=== PATIENT | female | born 1960 | race Caucasian/White ===

== ENCOUNTER 2022-11-26 09:15 | Day surgery (SDC) | payer OTHER, SELFPAY ==
--- NOTE | ~2022-11-26 | FL_ITS ---
EXAMINATION: XR LUMBAR PUNCTURE CLINICAL INFORMATION: Mild cognitive impairment. COMPARISON: None TECHNIQUE: Following explaining fluoroscopy-guided lumbar puncture procedure, benefits and risks, a written consent was obtained. Under fluoroscopy an optimal site was selected along the L4-L5 disc level and marked on the skin. The marked site was cleaned and draped in usual sterile manner. 1% lidocaine was injected at puncture site. Under fluoroscopy a 20-gauge spinal needle was advanced from the skin intrathecally at L4-L5 disc level. The stylet was removed and CSF was collected in 4 test tubes. Postprocedure stylet was reintroduced and the entire needle was removed. Complete hemostasis was achieved at puncture site. Sterile dressing applied postprocedure. Patient tolerated the procedure extremely well. FINDINGS: On single AP image of lumbar spine, the vertebral heights, alignment and disc heights are normal. There is minimal ventral spondylosis at the L3-L4 and L4-L5 disc levels. Approximately 10.5 mL of clear CSF fluid was collected in 4 test tubes and sent to lab as per referring physician's orders. FLUOROSCOPY TIME: 0.7 minutes. DOSE AREA PRODUCT: 8.012 uGy-m2 (microgray-meter squared) FL/FL guided lumbar puncture LP IMPRESSION: Successful fluoroscopy-guided lumbar puncture performed without immediate complications.
[2022-11-26 09:29] VITALS: BMI 39.1
[2022-11-26 09:53] LABS: MANUAL DIFF FLAG NO
[2022-11-26 10:01] LABS: Basophils Percent Auto 0.3 % (0-2); Eosinophils Absolute Auto 0.4 X10*3/uL (0.0-0.4); Eosinophils Percent Auto 6.2 % (0-4); Hematocrit 40.9 % (37.0-47.0); Lymphocytes Absolute Auto 1.7 X10*3/uL (1.2-4.9); Lymphocytes Percent Auto 29.7 % (20-40); Mean Corpuscular HGB Conc 34.2 g/dl (31.0-35.0); Mean Corpuscular Hemoglobin 29.7 pg (27.0-33.0); Mean Corpuscular Volume 86.8 fL (80.0-98.0); Mean Platelet Volume 10.2 fL (9.4-12.3); Monocytes Absolute Auto 0.4 X10*3/uL (0.1-1.2); Monocytes Percent Auto 6.2 % (2-11); Neutrophils Absolute Auto 3.3 x10*3/uL (2.0-8.3); Neutrophils Percent Auto 57.6 % (45-73); Platelet Count 234 X10*3/uL (160-400); Red Blood Count 4.71 X10*6/uL (4.20-5.50); Red Cell Distribution Width 12.5 % (11.0-16.0); White Blood Count 5.8 X10*3/uL (4.8-10.8)
[2022-11-26 10:07] LABS: INTERNATIONAL NORM RATIO 0.9 (0.9-1.1); Prothrombin Time 10.6 SEC (10.0-13.1)
[2022-11-26 10:09] LABS: Partial Thromboplastin Time 31.8 SEC (26.0-36.4)
[2022-11-26 10:13] LABS: Anion Gap 16 (12-20); Blood Urea Nitrogen 19 mg/dL (9-16); Carbon Dioxide 24 mmol/L (22-29); Chloride 106 mmol/L (96-108); Potassium 3.6 mmol/L (3.3-5.1); Sodium 142 mmol/L (135-145)
[2022-11-26 12:09] VITALS: BP 141/66; PULSE 63; RESP 16; TEMP 36.4; O2SAT 96
[2022-11-26 12:39] VITALS: BP 133/66; PULSE 64; RESP 18; O2SAT 97
[2022-11-26 12:57] LABS: CSF Appearance Clear, Colorless
[2022-11-26 12:58] LABS: CSF Tube # 1
[2022-11-26 13:08] LABS: Glucose CSF 78 mg/dL; Total Protein CSF 51.5 mg/dL (15-45)
[2022-11-26 13:09] VITALS: BP 128/48; PULSE 66; RESP 18; O2SAT 98
[2022-11-26 13:35] VITALS: BP 143/66; PULSE 68; RESP 18; O2SAT 98
[2022-11-26 13:53] LABS: Appearance CSF CLEAR; CSF Monos 20 %; CSF Tube # 4; Color CSF COLORLESS; Lymphocytes CSF 80 %; Red Blood Cell CSF 0 MM*3; White Blood Cell CSF 2 MM*3
[2022-11-26 14:05] VITALS: BP 142/73; PULSE 69; RESP 18; O2SAT 98
[2022-11-26 14:51] VITALS: BP 133/68; PULSE 72; RESP 18; O2SAT 95
== END 2022-11-26 14:56 | disposition home or self-care (01) ==
PROVIDERS: Radiology Diagnostic Radiology; PCP Internal Medicine; Visit Provider Psychiatry & Neurology Neurology
PROC: 009U3ZZ Drainage of Spinal Canal, Percutaneous Approach (ICD-10-PCS; CPT 62270; principal; 2022-11-26 11:00)
DX: G31.84 Mild cognitive impairment of uncertain or unknown etiology (principal); F90.9 Attention-deficit hyperactivity disorder, unspecified type; I10 Essential (primary) hypertension; G47.33 Obstructive sleep apnea (adult) (pediatric); F41.8 Other specified anxiety disorders; E03.9 Hypothyroidism, unspecified; E11.9 Type 2 diabetes mellitus without complications; Z79.84 Long term (current) use of oral hypoglycemic drugs; Z99.89 Dependence on other enabling machines and devices
CPT/HCPCS: 36415; 62328; 80051; 82945; 83520; 84157; 84520; 85025; 85610; 85730; 89051

== ENCOUNTER → 2025-05-10 07:29 | Outpatient (BNV) | payer OTHER, SELFPAY | PROVIDERS: PCP Internal Medicine; Visit Provider Radiology Diagnostic Radiology | DX: R90.0 Intracranial space-occupying lesion found on diagnostic imaging of central nervous system (principal) | CPT/HCPCS: 70551 ==

== ENCOUNTER 2025-05-10 07:30 | Outpatient (REF) | payer OTHER, SELFPAY ==
--- NOTE | ~2025-05-10 | MR_ITS ---
EXAMINATION: MR BRAIN WITHOUT CONTRAST CLINICAL INFORMATION: Headache. Mild cognitive impairment of uncertain etiology. COMPARISON: None available. TECHNIQUE: MRI of the brain was obtained using routine sequences without contrast. FINDINGS: No restricted diffusion. No acute intracranial hemorrhage, mass effect, midline shift, hydrocephalus or herniation. Bilateral, multifocal patchy and punctate subcortical and deep white matter hyperintense T2 FLAIR signal involving centrum semiovale and larose radiata. Questionable 4 mm subependymal irregular morphology of the left lateral ventricle. There is CSF prominence of the temporal horn right lateral ventricle with the probable volume loss of the right hippocampus. No gross signal abnormality in the proper hippocampus. Sellar/suprasellar region demonstrated no gross signal abnormality or masses. Craniocervical junction demonstrates normal position of the cerebellar tonsils. No signal abnormality within the posterior cranial fossa contents. Flow-void signal within the main vessels is normal. MR/MR head/brain wo con IMPRESSION: Right mesial temporal sclerosis should be considered in the correct clinical settings. Consider a dedicated image contrast high-resolution with IV contrast. White matter disease. Consider small vessel occlusive disease versus demyelinating process. Questionable subependymal irregularity left lateral ventricle. Electronically signed by: Enio Laguna MD 05/10/2025 08:34 AM EDT
--- OUTSIDE RECORDS SUMMARY | 2025-05-10 07:33 | XMS_ITS | Clinical Summary ---
Author Organization [address] Address [address] [place] [phone] Phone Care Team Providers Care Associate Dean Of Women Name Role Phone Didier Tinoco MD Primary Care Provider Allergies No known active allergies Medications methylphenidate (METADATE ER) 20 mg ER tablet Take 1 tablet (20 mg total) by mouth 1 (one) time each day before breakfast. 03/20/2025 Active metFORMIN (GLUCOPHAGE) 500 mg tablet Take 1 tablet (500 mg total) by mouth 1 (one) time each day with breakfast. Active donepeziL (ARICEPT) 5 mg tablet Take 1 tablet (5 mg total) by mouth at bedtime. Active chlorthalidone (HYGROTON) 25 mg tablet Take 1 tablet (25 mg total) by mouth 1 (one) time each day. 02/20/2025 Active atorvastatin (LIPITOR) 10 mg tablet Take 1 tablet (10 mg total) by mouth at bedtime. Active levothyroxine (SYNTHROID, LEVOTHROID) 125 mcg tablet Take 1 tablet (125 mcg total) by mouth 1 (one) time each day before breakfast. Active semaglutide (Ozempic) 0.25 mg or 0.5 mg(2 mg/1.5 mL) injection pen Inject 0.25 mg under the skin every 7 (seven) days. Active Active Problems Problem Noted Date Diagnosed Date Diabetes (CMS/HCC V24, CMS/HCC V28) 03/22/2025 Hypercholesteremia 03/22/2025 Obesity 03/22/2025 Post concussion syndrome 03/22/2025 ADD (attention deficit disorder) 10/15/2018 Hypertension 10/15/2018 Hypothyroid 10/15/2018 HAYDEN (obstructive sleep apnea) 10/15/2018 Encounters Date Type Department Care Team Description 04/07/2025 Telephone [facility] [address] [phone] Stacy Anders MA 04/03/2025 Telephone [facility] [address] [phone] Janeth Antonio MA Follow Up Appt 03/28/2025 Telephone [facility] [address] [address] Mike Sadler MD 03/22/2025 2:00 PM EDT Office Visit [address] [phone] Mike Sadler MD HAYDEN (obstructive sleep apnea) (Primary Dx); New daily persistent headache 03/22/2025 Telephone [facility] [address] [address] Janeth Antonio MA Abstraction (/) from Last 3 Months Surgical History Surgery Date Site/Laterality Comments OTHER SURGICAL HISTORY 2009 Right PROCEDURE: MS OPEN REPAIR OF ROTATOR CUFF ACUTE Medical History Medical History Date Comments HTN (hypertension) 2012 DX:HTN (hyper tension) ADD (attention deficit disorder) DX:ADD (attention deficit disorder) Hypothyroid DX:Hypothyroid Family History Medical History Relation Name Comments Diabetes Father Heart attack Maternal Grandfather Heart attack Maternal Grandmother Alzheimer's disease Mother Diabetes Paternal Grandfather No Known Problems Paternal Grandmother Relation Name Status Comments Father Maternal Grandfather Maternal Grandmother Mother Paternal Grandfather Paternal Grandmother Social History Tobacco Use Types Packs/Day Years Used Date Smoking Tobacco: Never Smokeless Tobacco: Never Tobacco Cessation:Counseling Given: Not Answered Alcohol Use Standard Drinks/Week Comments Yes 0 (1 standard drink = 0.6 oz pur e alcohol) Comments Unknown Sex and Gender Information Value Date Recorded Sex Assigned at Not on file Legal Sex Female 8:37 PM EST Gender Identity Not on file Sexual Orientation Not on file Obstetrics History Last Filed Vital Signs Vital Sign Reading Time Taken Comments Blood Pressure 168/89 03/22/2025 2:18 PM EDT Pulse 87 03/22/2025 2:18 PM EDT Temperature 36.4 C (97.5 F) 03/22/2025 2:18 PM EDT Respiratory Rate 20 03/22/2025 2:18 PM EDT Oxygen Saturation 99% 03/22/2025 2:18 PM EDT Inhaled Oxygen Concentration - - Weight 91.2 kg (201 lb) 03/22/2025 2:18 PM EDT Height 165.1 cm (5' 5 ) 03/22/2025 2:18 PM EDT Body Mass Index 33.45 03/22/2025 2:18 PM EDT Plan of Treatment Upcoming Encounters Date Type Department Care Team (Late st Contact Info) Description 05/24/2025 8:15 AM EDT Office Visit Pulmonolgy - [address] [phone] Mike Sadler MD [address] [address] Health Maintenance Due Date Last Done Comments Breast Cancer Screening 1960 Diabetes: Annual Foot Exam 12/27/1971 Diabetes: Annual Retina Eye Exam 12/27/1971 DTaP,Tdap,and Td Vaccines (1 - Tdap) 1980 Pneumococcal Vaccine: 50+ Years (1 of 2 - PCV) 1980 Cervical Cancer Screening: P ap Smear 1982 Zoster Vaccines (1 of 2) 12/27/2011 Cholesterol Screening (Lipid Panel) 09/20/2022 Colorectal Cancer Screening: Colonoscopy 09/20/2022 HIV Screening 09/20/2022 Hepatitis C Screening 09/20/2022 Social Influencers of Health Screening 09/20/2022 COVID-19 Vaccine (3 - 2023-2 5 season) 2024 07/25/2021, 07/04/2021 Depression Screening 10/19/2024 Diabetes: Annual Urine Albumin-Creatinine Ratio (uACR) 12/29/2024 Influenza Vaccine (#1) 2025 Diabetes: Blood Sugar Contro l Test (HGBA1C) 07/01/2025 12/29/2024 Diabetes: Annual GFR (Glomerular Filtration Rate) 12/29/2025 12/29/2024 Hypertension/CHF/CAD Annual BMP Blood Test 12/29/2025 12/29/2024 RSV Immunization Adult Patients (1 - 1-dose 75+ series) 2036 HIB Vaccines Aged Out No longer eligi ble based on patient's age to complete this topic HPV Vaccines Aged Out No longer eligi ble based on patient's age to complete this topic Hepatitis A Vaccines Aged Out No long er eligible based on patient's age to complete this topic Hepatitis B Vaccines Aged Out No long er eligible based on patient's age to complete this topic IPV Vaccines Aged Out No longer eligi ble based on patient's age to complete this topic MMR Vaccines Aged Out No longer eligi ble based on patient's age to complete this topic Meningococcal ACWY Vaccine Aged Out N o longer eligible based on patient's age to complete this topic Meningococcal B Vaccine Aged Out No l onger eligible based on patient's age to complete this topic RSV Immunization Patients Under 20 months Aged Out No longer eligible b ased on patient's age to complete this topic Varicella Vaccines Aged Out No longer eligible based on patient's age to complete this topic Procedures Procedure Name Priority Date/Time Associated Diagnosis Comments COMPREHENSIVE METABOLIC PANEL Routine 12/29/2024 2:02 PM EDT Routine general medical examination at a health care facility Essential hypertension, benign HEMOGLOBIN A1C Routine 12/29/2024 2:02 PM EDT Routine general medical examination at a health care facility Essential hypertension, benign from Last 3 Months or Most Recently Relevant to Health Maintenance Results * Hemoglobin A1c (12/29/2024 2:02 PM EDT) Hemoglobin A1C 5.5 <6.5 % LAB CHEMISTRY METHOD 12/29/2024 8:47 PM EDT [facility] Mean Bld Glu Estim. 111 mg/dL LAB CHEMISTRY METHOD 12/29/2024 8:47 PM EDT [facility] Blood Venous blood specimen / Unknown Venipuncture / Unknown 12/29/2024 2:02 PM EDT 12/29/2024 4:32 PM EDT us Polo NUÑEZ LAB BLOOD ORDERABLES Final Res ult [facility] [address] [place] [address], [place] [phone] * (ABNORMAL) Comprehensive metabolic panel (12/29/2024 2:02 PM EDT) Sodium 140 133 - 145 mmol/L LAB CHEMISTRY METHOD 12/29/2024 5:23 PM EDT [facility] Potassium 3.6 3.5 - 5.5 mmol/L LAB CHEMISTRY METHOD 12/29/2024 5:23 PM [facility] Chloride 102 96 - 110 mmol/L LAB CHEMISTRY METHOD 12/29/2024 5:23 PM [facility] CO2 33(H) 21 - 32 mmol/L LAB CHEMISTRY METHOD 12/29/2024 5:23 PM [facility] Anion Gap 5 3 - 11 LAB CHEMISTRY METHOD 12/29/2024 5:23 PM [facility] Glucose 75 70 - 100 mg/dL LAB CHEMISTRY METHOD 12/29/2024 5:23 PM [facility] BUN 15 5 - 25 mg/dL LAB CHEMISTRY METHOD 12/29/2024 5:23 PM [facility] Creatinine 0.95 0.50 - 1.10 mg/dL LAB CHEMISTRY METHOD 12/29/2024 5:23 PM [facility] eGFR 67 >=60 mL/min/1. 73m2 LAB CHEMISTRY METHOD 12/29/2024 5:23 PM [facility] Comment:Calculation based on the Chronic Kidney Disease Epidemiology Collaboration (CKD-EPI) equation refit without adjustment for race. BUN/Creatinine Ratio 15.8 LAB CHEMISTRY METHOD 12/29/2024 5:23 PM [facility] Calcium 9.8 8.5 - 10.5 mg/dL LAB CHEMISTRY METHOD 12/29/2024 5:23 PM EDT [facility] AST (SGOT) 9(L) 10 - 42 unit/L LAB CHEMISTRY METHOD 12/29/2024 5:23 PM [facility] ALT (SGPT) 21 10 - 60 unit/L LAB CHEMISTRY METHOD 12/29/2024 5:23 PM EDT [facility] Alkaline Phosphatase 60 42 - 121 unit/L LAB CHEMISTRY METHOD 12/29/2024 5:23 PM EDT [facility] Total Protein 7.3 6.0 - 8.0 g/dL LAB CHE[facility]STRY [facility] Albumin 4.1 3.2 - 5.0 g/dL LAB CHEMISTRY METHOD [facility] Total Bilirubin 0.6 0.0 - 1.4 mg/dL LAB CHEMISTRY METHOD 12/29/2024 5:23 PM EDT [facility] Blood Venous blood specimen / Unknown Venipuncture / Unknown 12/29/2024 2:02 PM EDT 12/29/2024 4:37 PM EDT us Polo NUÑEZ LAB BLOOD ORDERABLES Final Res ult [facility] [address] [place] [address], from Last 3 Months or Most Recently Relevant to Health Maintenance Insurance [facility] Care Teams Associate Dean Of Women Relationship Specialty Start Date End Date Didier Tinoco MD [address] PCP - General Internal Medicine 10/07/18
== END 2025-05-10 07:31 | disposition home or self-care (01) ==
LOC: HO.MRI 07:30
PROVIDERS: PCP Internal Medicine; Visit Provider Registered Nurse
DX: G31.84 Mild cognitive impairment of uncertain or unknown etiology (principal)
CPT/HCPCS: 70551

== ENCOUNTER 2025-06-16 09:07 | Outpatient (AMB) | payer OTHER, SELFPAY ==
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
--- OUTSIDE RECORDS SUMMARY | 2025-06-16 10:01 | XMS_ITS | Clinical Summary ---
Author Organization [address] Address [address] [place] [phone] Phone Care Team Providers Care Training Intern Name Role Phone Didier Tinoco MD Primary [...] the skin every 7 (seven) days. Active acetaminophen (Tylenol Extra Strength) 500 mg tablet Take 2 tablets (1,000 mg total) by mouth. 03/06/2025 Active buPROPion XL (WELLBUTRIN XL) 300 mg 24 hr tablet Take 1 tablet (300 mg total) by mouth. 03/05/2025 Active Dilaudid 2 mg tablet Take 1 tablet (2 mg total) by mouth. 03/06/2025 Active ibuprofen (ADVIL,MOTRIN) 400 mg tablet Take 1 tablet (400 mg total) by mouth. 03/06/2025 Active methylPREDNISol one (MEDROL DOSPAK) 4 mg tablet TAKE 6 TABLETS ON DAY 1 DIRECTED ON PACKAGE AND DECREASE BY 1 TAB EACH DAY FOR A TOTAL OF 6 DAYS 05/23/2024 Active potassium chloride 20 mEq tablet extended release Take 1 tablet by mouth 1 (one) time each day. 03/06/2025 Active Active Problems Problem Noted Date Diagnosed Date Diabetes ([facility] V24, [facility] V28) 03/22/2025 Hypercholesteremia 03/22/2025 Obesity 03/22/2025 Post concussion syndrome 03/22/2025 ADD (attention deficit disorder) 10/15/2018 Hypertension 10/15/2018 Hypothyroid 10/15/2018 HAYDEN (obstructive sleep apnea) 10/15/2018 Encounters Date Type Department Care Team Description 04/07/2025 [facility] [address] [phone] Stacy Anders MA 04/03/2025 [facility]phone [facility] [address] [phone] Janeth Brandon MA 03/28/2025 [facility] [address] [phone] Mike Sadler MD 03/22/2025 2:00 PM EDT [facility] [address] [phone] Mike Sadler MD HAYDEN (obstructive sleep apnea) (Primary Dx); New daily persistent headache 03/22/2025 [facility] [address] [phone] Janeth Brandon MA from Last 3 Months Surgical History Surgery Date Site/Laterality Comments OTHER SURGICAL HISTORY 2009 Right PROCEDURE: [place] OPEN REPAIR OF ROTATOR CUFF ACUTE Medical [...] Care Team (Late st Contact Info) Description 10/25/2025 10:00 AM EST Office Visit Pulmonolgy - [facility] [address] [facility] [address] [place] [address] Mike Sadler MD [address] [place] [phone] Health Maintenance Due Date Last Done Comments [...] * Hemoglobin A1c (12/29/2024 2:02 PM EDT) [facility] Hemoglobin A1C 5.5 <6.5 % LAB CHEMISTRY METHOD 12/29/2024 8:47 PM EDT [facility] Mean Bld Glu Estim. 111 mg/dL LAB CHEMISTRY METHOD 12/29/2024 8:47 PM EDT [facility] Blood Venous blood specimen / Unknown Venipuncture / Unknown 12/29/2024 2:02 PM EDT 12/29/2024 4:32 PM EDT us Pol[facility] NUÑEZ LAB BLOOD ORDERABLES Final Res ult [facility] [address] [place] [address], * (ABNORMAL) Comprehensive metabolic panel (12/29/2024 2:02 PM EDT) [facility] Sodium 140 133 - 145 mmol/L LAB CHEMISTRY METHOD 12/29/2024 5:23 PM EDT [facility] Potassium 3.6 3.5 - 5.5 mmol/L LAB CHEMISTRY METHOD 12/29/2024 5:23 PM T [facility] Chloride 102 96 - 110 mmol/L LAB CHEMISTRY METHOD 12/29/2024 5:23 PM T [facility] CO2 33(H) 21 - 32 mmol/L LAB CHEMISTRY METHOD 12/29/2024 5:23 PM EDT [facility] Anion Gap 5 3 - 11 LAB CHEMISTRY METHOD 12/29/2024 5:23 PM [facility] Glucose 75 70 - 100 mg/dL LAB CHEMISTRY METHOD 12/29/2024 5:23 PM T [facility] BUN 15 5 - 25 mg/dL LAB CHEMISTRY METHOD 12/29/2024 5:23 PM [facility] Creatinine 0.95 0.50 - 1.10 mg/dL LAB CHEMISTRY METHOD 12/29/2024 5:23 PM [facility] eGFR 67 >=60 mL/min/1. 73m2 LAB CHEMISTRY METHOD 12/29/2024 5:23 PM [facility] Comment:Calculation based on the Chronic Kidney Disease Epidemiology Collaboration (CKD-EPI) equation refit without adjustment for race. BUN/Creatinine Ratio 15.8 LAB CHEMISTRY METHOD 12/29/2024 5:23 PM [facility] Calcium 9.8 8.5 - 10.5 mg/dL LAB CHEMISTRY METHOD 12/29/2024 5:23 PM [facility] AST (SGOT) 9(L) 10 - 42 unit/L LAB CHEMISTRY METHOD 12/29/2024 5:23 PM [facility] ALT (SGPT) 21 10 - 60 unit/L LAB CHEMISTRY METHOD 12/29/2024 5:23 PM [facility] Alkaline Phosphatase 60 42 - 121 unit/L LAB CHEMISTRY METHOD 12/29/2024 5:23 PM [facility] Total Protein 7.3 6.0 - 8.0 g/dL LAB CHEMISTRY METHOD 12/29/2024 5:23 PM [facility] Albumin 4.1 3.2 - 5.0 g/dL LAB CHEMISTRY METHOD 12/29/2024 5:23 PM [facility] Total Bilirubin 0.6 0.0 - 1.4 mg/dL LAB CHEMISTRY METHOD 12/29/2024 5:23 PM [facility] Blood Venous blood specimen / Unknown Venipuncture / Unknown 12/29/2024 2:02 PM EDT 12/29/2024 4:37 PM EDT us Pol[facility] NUÑEZ LAB BLOOD ORDERABLES Final Res ult [facility] [address] [place] [address], from Last 3 Months or Most Recently Relevant to Health Maintenance Insurance [employer] Care Teams Training Intern Relationship Specialty Start Date End Date Didier Tinoco MD [address] [facility] [address] [place], [place] PCP - General Internal Medicine 10/07/18
== END 2025-06-16 09:40 | disposition home or self-care (01) ==
LOC: HO.HSM 09:07
PROVIDERS: PCP Internal Medicine; Visit Provider Registered Nurse
DX: F90.9 Attention-deficit hyperactivity disorder, unspecified type (principal); G31.84 Mild cognitive impairment of uncertain or unknown etiology
CPT/HCPCS: 99214

== ENCOUNTER 2025-09-28 13:54 | Outpatient (AMB) | payer OTHER, SELFPAY ==
--- OUTSIDE RECORDS SUMMARY | 2024-04-13 06:15 | XMS_ITS ---
Author Organization [facility] [place] Address [address] [facility] [address] [place] [address] Care Team Providers Care Aircraft Accessories Mechanic Name Role Phone Migration, Provider Unavailable Unavailable REASON FOR VISIT Follow-up Appt Encounters Encounter Location Date Provider Diagnosis [facility], [address] [place] [phone] 04/13/2024 Provider Migration Plan Of Treatment Next Appt Details Provider Name:Coco ray, 01/10/2026 11:30:00 AM, [address] [facility], [address], [place], [address], [id number] Progress Notes * DARIANA SINGHDOB:1960 (64 yo F)Acc No.[id number]:04/13/2024 Progress Notes Patient: Maycol ALEXDARIANA Provider: Cindy Goldberg :1960 A ge:63 Y S ex:Female Date:04/13/2024 Address:[address] [place] [id number] Subjective: * Chief Complaints: * F ollow-up Appt * Ocular Surgical History: Objective: Vision Examination: * Electronic signature of Prov ider Migration on 09/28/2025 at 09:09 PM EST Sign off status: Pending * Provider: Cindy wick Migration Date: 0 04/13/2024 Generated for Printi ng/Faxing/eTransmitting on: 1 11/29/2024 09:09 PM EST
--- OUTSIDE RECORDS SUMMARY | 2024-06-07 10:15 | XMS_ITS ---
Author Organization [facility] [place] Address [address] [facility] [address] [place] [address] Care Team Providers Care House Worker Name Role Phone Migration, Provider Unavailable Unavailable REASON FOR VISIT CPX Encounters Encounter Location Date Provider Diagnosis [facility], [address] [place] [phone] 06/07/2024 Provider Migration Plan Of Treatment Next Appt Details Provider Name:Coco ray, 01/10/2026 11:30:00 AM, [address] [facility], [address], [place], [address], [id number] Progress Notes * DARIANA SINGHDOB:1960 (64 yo F)Acc No.[id number]:06/07/2024 Progress Notes Patient: Maycol ALEX DARIANA Provider: Cindy hanvider Migration :1960 A ge:63 Y S ex:Female Date:06/07/2024 Address:[address] [facility] Subjective: * Chief Complaints: * C PX * Ocular Surgical History: Objective: Vision Examination: * Electronic signature of Prov ider Migration on 09/28/2025 at 09:09 PM EST Sign off status: Pending * Provider: Cindy garzader Migration Date: 06/07/2024 Generated for Umui ng/Faashleeg/eTransmitting on: 1 11/29/2024 09:09 PM EST
--- OUTSIDE RECORDS SUMMARY | 2024-07-13 06:00 | XMS_ITS ---
Author Organization [facility] [place] Address [address] [facility] [address] [place] [address] Care Team Providers Care Jewel Bearing Turner Name Role Phone Migration, Provider Unavailable Unavailable REASON FOR VISIT CPX Encounters Encounter Location Date Provider Diagnosis [facility], [address] [place] [phone] 07/13/2024 Provider Migration Plan Of Treatment Next Appt Details Provider Name:Coco ray, 01/10/2026 11:30:00 AM, [address] [facility], [address], [place], [address], [phone] Progress Notes * DARIANA SINGHDOB:1960 (64 yo F)Acc No.[id number]:07/13/2024 Progress Notes Patient: Maycol ALEX DARIANA Provider: Cindy hanvider Migration :1960 A ge:63 Y S ex:Female Date:07/13/2024 Address:[address] [facility] Subjective: * Chief Complaints: * C PX * Ocular Surgical History: Objective: Vision Examination: * Electronic signature of Prov ider Migration on 09/28/2025 at 09:10 PM EST Sign off status: Pending * Provider: Cindy garzader Migration Date: 0 07/13/2024 Generated for Umui ng/Faashleeg/eTransmitting on: 1 11/29/2024 09:10 PM EST
--- OUTSIDE RECORDS SUMMARY | 2024-10-17 05:00 | XMS_ITS ---
Author Organization [facility] [place] Address [address] [facility] [address] [place] [address] Care Team Providers Care Reed Press Feeder Name Role Phone Migration, Provider Unavailable Unavailable REASON FOR VISIT Follow-up Appt Encounters Encounter Location Date Provider Diagnosis [facility], [address] [place] [phone] 10/17/2024 Provider Migration Plan Of Treatment Next Appt Details Provider Name:Coco ray, 01/10/2026 11:30:00 AM, [address] [facility], [address], [place], [address], [id number] Progress Notes * DARIANA SINGHDOB:1960 (64 yo F)Acc No.[id number]:10/17/2024 Progress Notes Patient: Maycol ALEX DARIANA Provider: Cindy Goldberg :1960 A ge:63 Y S ex:Female Date:10/17/2024 Address:[address] [facility] Subjective: * Chief Complaints: * F ollow-up Appt * Ocular Surgical History: Objective: Vision Examination: * Electronic signature of Prov ider Migration on 09/28/2025 at 09:09 PM EST Sign off status: Pending * Provider: Cindy wick Migration Date: Generated for Printi ng/Faxing/eTransmitting on: 11/29/2024 09:09 PM EST
--- OUTSIDE RECORDS SUMMARY | 2024-12-29 08:30 | XMS_ITS ---
Author Organization [facility] [place] Address [address] [facility] [address] [place] [address] Care Team Providers Care Youth Probation Officer Name Role Phone Polo Garcia Unavailable [phone] REASON FOR VISIT Follow-up Appt Encounters Encounter Location Date Provider Diagnosis [facility], [place] [address] [facility] [address] [place] [address] 12/29/2024 Polo Garcia Plan Of Treatment Next Appt Details Provider Name:Coco ray, 01/10/2026 11:30:00 AM, [address] [facility], [address], [place], [address], [id number] Progress Notes * DARIANA SINGHDOB:1960 (64 yo F)Acc No.[id number]:12/29/2024 Progress Notes Patient: DARIANA RITTER Provider: Chrissy NUÑEZ :1960 A ge:64 Y S ex:Female Date:12/29/2024 Address:[address] [facility] Subjective: * Chief Complaints: * F ollow-up Appt * Ocular Surgical History: Objective: Vision Examination: * Electronic signature of Blair Garcia PA-C on 09/28/2025 at 09:09 PM EST Sign off status: Pending * Provider: Chrissy NUÑEZ Date: 0 12/29/2024 Generated for Printi ng/Faxing/eTransmitting on: 1 11/29/2024 09:09 PM EST
--- OUTSIDE RECORDS SUMMARY | 2024-12-29 08:30 | XMS_ITS ---
Author Organization [facility] [place] Address [address] [facility] [address] [place] [address] Care Team Providers Care Final Block Press Operator Name Role Phone Migration, Provider Unavailable Unavailable REASON FOR VISIT Follow-up Appt Encounters Encounter Location Date Provider Diagnosis [facility], [address] [place] [phone] 12/29/2024 Provider Migration Plan Of Treatment Next Appt Details Provider Name:Coco ray, 01/10/2026 11:30:00 AM, [address] [facility], [address], [place], [address], [phone] Progress Notes * DARIANA SINGHDOB:1960 (64 yo F)Acc No.[id number]:12/29/2024 Progress Notes Patient: Maycol ALEX DARIANA Provider: Cindy Goldberg :1960 A ge:64 Y S ex:Female Date:12/29/2024 Address:[address] [facility] Subjective: * Chief Complaints: * F ollow-up Appt * Ocular Surgical History: Objective: Vision Examination: * Electronic signature of Prov ider Migration on 09/28/2025 at 09:09 PM EST Sign off status: Pending * Provider: Cindy wick Migration Date: 0 12/29/2024 Generated for Printi ng/Faxing/eTransmitting on: 1 11/29/2024 09:09 PM EST
--- OUTSIDE RECORDS SUMMARY | 2025-06-12 06:45 | XMS_ITS ---
Author Organization [facility] [place] Address [address] [facility] [address] [place] [address] Care Team Providers Care Best Worker Name Role Phone Kayli Rosanna Unavailable [phone] REASON FOR VISIT follow-up Encounters Encounter Location Date Provider Diagnosis [facility] [place] [address] [facility] [address] [place] [address] 06/12/2025 Rosanna Milan Plan Of Treatment Next Appt Details Provider Name:Coco Hansen Brandoncookie flor, 01/10/2026 11:30:00 AM, [address] [facility], [address], [place], [address], [phone] Progress Notes * DARIANA SINGHDOB:1960 (64 yo F)Acc No.[id number]:06/12/2025 Progress Notes Patient: Maycol EUCEDADARIANA DYE Provider: Kaykay Milan :1960 A ge:64 Y S ex:Female Date:06/12/2025 Address:[facility] Subjective: * Chief Complaints: * F ollow-up * Electronic signature of Jason Davidsonflor on 09/28/2025 at 09:09 PM EST Sign off status: Pending * Provider: Kaykay Milan Date: 0 06/12/2025 Generated for Umui ng/Fajaymie/eTransmitting on: 1 11/29/2024 09:09 PM EST
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
--- OUTSIDE RECORDS SUMMARY | 2025-09-28 21:10 | XMS_ITS | Patient Health Record ---
Author Organization [facility], [place] Address [address] [facility] [address] [place] [address] Care Team Providers Care Auto Service Instructor Name Role Phone Arthursanchez Polo Unavailable [phone] Migration, Provider Unavailable Unavailable Rosanna Milan Unavailable [phone] Coco Conrad Unavailable [phone] Allergies No Known Allergies Reason For Referral No Information Medications Medication SIG (Take, Route, Frequency, Duration) Notes Start Date End Date Status Donepezil HCl 10 MG Tablet 1 tablet at b edtime Orally Once a day Active Levothyroxine Sodium 125 MCG Tablet 1 tablet in the morning on an empty stomach Orally Once a day; Duration: 90 days Active Chlorthalidone 25 MG Tablet 1 tablet in the morning with food Orally daily; Duration: 90 days Active Atorvastatin Calcium 10 MG Tablet 1 tablet Orally Once a day Active Ozempic (2 MG/DOSE) 8 MG/3ML Solution Pen-injector 2mg injection Subcutaneous weekly; Duration: 90 days Active Methyclothiazide Act amelia buPROPion HCl ER (XL) 300 MG Tablet Extended Release 24 Hour 1 tablet in the morning Orally Once a day; Duration: 90 days Active Social History Section Notes: smoke: no drink:no smoke: no drink:no Problems Problem Type SNOMED Code ICD Code Onset Dates Problem Status W/U Status Risk Notes Problem Hyperlipidemia (91597512) Hyperlipidemia, unspecified (E78.5) Active confirmed Vital Signs Heart Rate 66 /min 07/17/2025 Temperature 98.4 degrees Fahrenheit 06/14/2025 Respiratory Rate 18 /min 07/17/2025 Oximetry 96 % 07/17/2025 Blood pressure diastolic 80 mm Hg 07/17/2025 Weight-kg 94.8 kg 07/17/2025 Blood pressure systolic 168 mm Hg 07/17/2025 Weight 209 lbs 07/17/2025 Encounters Encounter Location Date Provider Diagnosis [facility], [address] [address] 10/17/2024 Provider Migration [facility], [address] [address] 12/29/2024 Provider Migration [facility], [address] [address] 12/29/2024 Polo Garcia [facility], [address] [address] 06/14/2025 Coco Conrad Diabetes mellitus without complication E11.9 ; Hyperlipidemia, unspecified E78.5 ; Depression, unspecified F32.A ; Hyperthyroidism E05.90 and Right flank pain R10.9 [facility], [address] [address] 07/17/2025 Coco Conrad Gas pain R14.1 [facility], [address] [address] 07/27/2025 Coco Conrad Assessments Encounter Date Diagnosis (ICD Code) Assessment Notes Treatment Notes Treatment Clinical Notes Section Notes 06/14/2025 Hyperlipidemia, unspecified (ICD-10 - E78.5) patient into office with multiple complaints. Rash on [place]-area right flank pain med refills Referral to dermatology sent [facility] is ok ordered a urine for r/o kidney stone 06/14/2025 Diabetes mellitus without complication (ICD-10 - E11.9) patient into office with multiple complaints. Rash on [place]-area right flank pain med refills Referral to dermatology sent [facility] is ok ordered a urine for r/o kidney stone 07/17/2025 Gas pain (ICD-10 - R14.1) Patient into the office today with complaint of on-going gas and stomache burning since she had her gallbladder removed. we discussed her diet and she admits to ingesting spicy food and lots of greens we discussed an OTC pepcid and gas relief. If no results she will call 06/14/2025 Depression, unspecified (ICD-10 - F32.A) patient into office with multiple complaints. Rash on [place]-area right flank pain med refills Referral to dermatology sent [facility] is ok ordered a urine for r/o kidney stone 06/14/2025 Hyperthyroidism (ICD-10 - E05.90) patient into office with multiple complaints. Rash on [place]-area right flank pain med refills Referral to dermatology sent [facility] is ok ordered a urine for r/o kidney stone 06/14/2025 Right flank pain (ICD-10 - R10.9) patient into office with multiple complaints. Rash on [place]-area right flank pain med refills Referral to dermatology sent [facility] is ok ordered a urine for r/o kidney stone Plan Of Treatment Next Appt Details Provider Name:Coco Jade Taylorcookie flor, 01/10/2026 11:30:00 AM, [address] [place] [address], [address], [place], [address], [phone] Insurance Providers Payer Name Payer Address Payer Phone Subscriber Number Group Number Insured Name Patient Relationship to Insured Coverage Start Date Coverage End Date [facility] Insurance [address] [place] [address] [id number] DARIANA SINGH Self - patient is the insured Medical (General) History Surgical History Surgery Date(Month/Year) gallbladder removal ankle surgery right rotator cuff
--- OUTSIDE RECORDS SUMMARY | 2025-09-28 21:10 | XMS_ITS | Clinical Summary ---
Author Organization [address] Address [address] [place] [address] Phone Care Team Providers Care Stator Plate Washer Name Role Phone Didier Tinoco MD Primary Care Provider [phone] Allergies No known active allergies Medications methylphenidate [...] Problems Problem Noted Date Diagnosed Date Diabetes 03/22/2025 Hypercholesteremia 03/22/2025 Obesity 03/22/2025 Post concussion syndrome 03/22/2025 ADD (attention deficit disorder) 10/15/2018 Hypertension 10/15/2018 Hypothyroid 10/15/2018 HAYDEN (obstructive sleep apnea) 10/15/2018 Surgical History Surgery Date Site/Laterality Comments OTHER SURGICAL HISTORY 2010 Right PROCEDURE: OR OPEN REPAIR OF ROTATOR CUFF ACUTE Medical [...] on file Sexual Orientation Not on file Last Filed Vital Signs Vital Sign Reading [...] Description 10/25/2025 10:00 AM EST Office Visit Pulmonology - [place] [address] [facility] [address] [place] [address] Mike Sadler MD [address] [place] [phone] Health Maintenance Due Date Last Done Comments Breast Cancer Screening 1961 Colorectal Cancer Screening: Colonoscopy 1961 Diabetes: Annual Foot Exam 12/27/1971 Diabetes: Annual Retina Eye Exam 12/27/1971 DTaP,Tdap,and Td Vaccines (1 - Tdap) 1980 Pneumococcal Vaccine: 50+ Years (1 of 2 - PCV) 1980 Cervical Cancer Screening: P ap Smear 1982 Zoster Vaccines (1 of 2) 12/27/2011 Cholesterol Screening (Lipid Panel) 09/20/2022 HIV Screening 09/20/2022 Hepatitis C Screening 09/20/2022 Social Influencers of Health Screening 09/20/2022 Depression Screening 10/19/2024 Diabetes: Annual Urine Albumin-Creatinine Ratio (uACR) 12/29/2024 COVID-19 Vaccine (3 - 2024-2 6 season) 2025 07/25/2021, 07/04/2021 Influenza Vaccine (#1) 2025 Diabetes: Blood Sugar Contro l Test (HGBA1C) 2025 06/28/2025, 12/29/2024 Diabetes: Annual GFR (Glomerular Filtration Rate) [...] Procedure Name Priority Date/Time Associated Diagnosis Comments HEMOGLOBIN A1C Routine 06/28/2025 1:50 PM EDT Diabetes mellitus ([facility] V24, [facility] V28) Calculus of kidney Hypothyroidism, unspecified type COMPREHENSIVE METABOLIC PANEL Routine 12/29/2024 2:02 PM EDT Routine general [facility] examination [facility] Essential hypertension, benign from Last 3 Months or Most Recently Relevant to Health Maintenance Results * Hemoglobin A1c (06/28/2025 1:50 PM EDT) Hemoglobin A1C 5.4 <6.5 % LAB CHEMISTRY METHOD 06/28/2025 9:36 PM EDT [facility] Mean Bld Glu Estim. 108 mg/dL LAB CHEMISTRY METHOD 06/28/2025 9:36 PM EDT [facility] Blood Venous blood specimen / Unknown Venipuncture / Unknown 06/28/2025 1:50 PM EDT 06/28/2025 1:59 PM EDT us Coco Conrad NP LAB BLOOD ORDERABLES Final Res ult [facility] [address] [place] [address], [place] [phone] * (ABNORMAL) Comprehensive metabolic panel (12/29/2024 2:02 PM EDT) Sodium 140 133 - 145 mmol/L LAB CHEMISTRY METHOD 12/29/2024 5:23 PM [facility] Potassium 3.6 3.5 - 5.5 mmol/L LAB CHEMISTRY METHOD 12/29/2024 5:23 PM [facility] Chloride 102 96 - 110 mmol/L LAB CHEMISTRY METHOD 12/29/2024 5:23 PM [facility] CO2 33(H) 21 - 32 mmol/L LAB CHEMISTRY METHOD 12/29/2024 5:23 PM [facility] Anion Gap 5 3 - 11 LAB CHEMISTRY METHOD 12/29/2024 5:23 PM [facility] Glucose 75 70 - 100 mg/dL LAB CHEMISTRY METHOD 12/29/2024 5:23 PM [facility] BUN 15 5 - 25 mg/dL LAB CHEMISTRY METHOD 12/29/2024 5:23 PM [facility] Creatinine 0.95 0.50 - 1.10 mg/dL LAB CHEMISTRY METHOD 12/29/2024 5:23 PM [facility] eGFR 67 >=60 mL/min/1. 73m2 LAB CHEMISTRY METHOD 12/29/2024 5:23 PM [facility] Comment:Calculation based on the Chronic Kidney Disease Epidemiology Collaboration (CKD-EPI) equation refit without adjustment for race. BUN/Creatinine Ratio 15.8 LAB CHEMISTRY METHOD 12/29/2024 5:23 PM [facility] Calcium 9.8 8.5 - 10.5 mg/dL LAB CHEMISTRY METHOD 12/29/2024 5:23 PM [facility] AST (SGOT) 9(L) 10 - 42 unit/L LAB CHEMISTRY METHOD 12/29/2024 5:23 PM [facility] ALT (SGPT) 21 10 - 60 unit/L LAB CHEMISTRY METHOD 12/29/2024 5:23 PM EDT [facility] Alkaline Phosphatase 60 42 - 121 unit/L LAB CHEMISTRY METHOD 12/29/2024 5:23 PM EDT [facility] Total Protein 7.3 6.0 - 8.0 g/dL LAB CHEMISTRY METHOD 12/29/2024 5:23 PM EDT [facility] Albumin 4.1 3.2 - 5.0 g/dL LAB CHEMISTRY METHOD 12/29/2024 5:23 PM EDT [facility] Total Bilirubin 0.6 0.0 - 1.4 mg/dL LAB CHEMISTRY METHOD 12/29/2024 5:23 PM EDT [facility] Blood Venous blood specimen / Unknown Venipuncture / Unknown 12/29/2024 2:02 PM EDT 12/29/2024 4:37 PM EDT us Polo NUÑEZ LAB BLOOD ORDERABLES Final Res ult [facility] [address] [place] [address], from Last 3 Months or Most Recently Relevant to Health Maintenance Insurance [employer] Care Teams Stator Plate Washer Relationship Specialty Start Date End Date Didier Tinoco MD [address] [place] [address] PCP - General Internal Medicine 10/07/18
== END 2025-09-28 14:16 | disposition home or self-care (01) ==
LOC: HO.HSM 13:55
PROVIDERS: PCP Internal Medicine; Visit Provider Registered Nurse
DX: F90.9 Attention-deficit hyperactivity disorder, unspecified type (principal); G31.84 Mild cognitive impairment of uncertain or unknown etiology
CPT/HCPCS: 99214